=== PATIENT | female | born 1975 | race Caucasian/White ===

== ENCOUNTER 2024-03-03 09:30 | Outpatient (CLI) | payer BC | END 2024-03-03 09:31 | disposition home or self-care (01) | LOC: PET 09:30 | PROVIDERS: ATTEND Internal Medicine Hematology & Oncology | DX: C20 Malignant neoplasm of rectum (principal) | CPT/HCPCS: 78815; A9552 ==

== ENCOUNTER 2024-10-03 09:30 | Outpatient (CLI) | payer BC | END 2024-10-03 09:31 | disposition home or self-care (01) | LOC: PET 09:30 | PROVIDERS: ATTEND Internal Medicine Hematology & Oncology | DX: C20 Malignant neoplasm of rectum (principal); R60.9 Edema, unspecified; Z98.890 Other specified postprocedural states | CPT/HCPCS: 78815; A9552 ==